=== PATIENT | female | born 1990 | race Asian ===

== ENCOUNTER 2018-06-02 17:07 | Emergency (ER) | END 2018-06-02 18:57 | disposition home or self-care (01) ==

== ENCOUNTER 2018-10-13 09:40 | Emergency (ER) | payer OTHER ==
[~2018-10-13] VITALS: Ht 162.6 cm; Wt 69.8 kg
[~2018-10-13 09:40] MED LIST: DOXY100T20 PO; MED4DP PO; NAPR-985 PO
[2018-10-13 09:44] VITALS: BP 138/68; PULSE 86; RESP 18; Ht 162.6 cm; Wt 69.8 kg
[2018-10-13] MEDS ORDERED: D-ME473S2 PO (12:31)
[2018-10-13] MEDS ORDERED: IBUP-1542 PO (12:31)
[2018-10-13] MEDS ORDERED: AZIT250T PO (12:31)
--- NOTE | 2018-10-13 12:35 | ERD ---
ER Documentation Chief Complaint Chief Complaint cold symptoms x 4 days HPI 28-year-old female presents with ear pain, congestion and cough for 4 days. She has mild pleuritic anterior chest pain. She denies sustained chest pain, vomiting, abdominal pain, urinary complaints. ROS All systems reviewed and are negative except as per history of present illness. Medications Home Meds Active Scripts Ibuprofen* (Motrin*) 600 Mg Tab, 600 MG PO Q6, #15 TAB Prov:FAUSTINO MOREIRA MD 10/13/18 Dextromethorphan Hb-Promethazine Hcl* (Promethazine DM* Syrup) 473 Ml Syrup, 5 ML PO Q6 PRN for COUGH for 5 Days, ML Prov:FAUSTINO MOREIRA MD 10/13/18 Azithromycin* (Zithromax*) 250 Mg Tablet, 250 MG PO .ZPACK DIRECTED, #6 TAB TAKE 500 MG (2 TABS) THE FIRST DAY THEN 250 MG (1 TAB) DAYS 2-5 Prov:FAUSTINO MOREIRA MD 10/13/18 Naproxen* (Naprosyn*) 500 Mg Tablet, 500 MG PO BID PRN for PAIN AND/OR INFLAMMATION, #30 TAB Prov:RADHA MEJIA PA-C 06/02/18 Methylprednisolone* (Medrol* DOSE PACK) 4 Mg/Dose-Pack Tab.ds.pk, 4 MG PO . DIRECTED, #1 PACKET Prov:RADHA MEJIA PA-C 06/02/18 Doxycycline Hyclate* (Doxycycline Hyclate*) 100 Mg Tablet.dr, 100 MG PO BID for 10 Days, TAB Prov:RADHA MEJIA PA-C 06/02/18 Allergies Allergies: Coded Allergies: No Known Allergy (Unverified , 06/02/18) PMhx/Soc Medical and Surgical Hx: pt denies Medical Hx, pt denies Surgical Hx History of Surgery: No Anesthesia Reaction: No Hx Neurological Disorder: No Hx Respiratory Disorders: No Hx Cardiac Disorders: No Hx Psychiatric Problems: No Hx Miscellaneous Medical Probl: No Hx Alcohol Use: Yes (social) Hx Substance Use: No Hx Tobacco Use: No Smoking Status: Never smoker FmHx Family History: No diabetes, No coronary disease, No other Physical Exam Vitals Vital Signs Date Temp Pulse Resp B/P (MAP) Pulse Ox O2 O2 Flow FiO2 Time Delivery Rate 10/13/18 98.5 86 18 138/68 99 09:44 (91) Physical Exam Const: No acute distress Head: Atraumatic Eyes: Normal Conjunctiva ENT: Normal External Ears, Nose and Mouth. TMs red and decreased light r eflex bilaterally. Postnasal drip. Neck: Full range of motion. No meningismus. Resp: Clear to auscultation bilaterally. No rales, wheezing or retractions appreciated. Cardio: Regular rate and rhythm, no murmurs Abd: Soft, non tender, non distended. Normal bowel sounds Skin: No petechiae or rashes Back: No midline or flank tenderness Ext: No cyanosis, or edema Neur: Awake and alert Psych: Normal Mood and Affect Procedures/MDM Patient presents with signs of otitis media without signs of perforation, mastoiditis, hypoxemia, rest or distress, additional complications. Will treat with Zithromax, promethazine, ibuprofen, primary care follow-up and return precautions. The patient was stable with no new complaints during the ER course. Clinically, there is no current evidence to suggest meningitis, sepsis, acute abdomen, pneumonia, stroke, acute coronary syndrome, pulmonary embolism, aortic dissection or any other emergent condition appearing to require further evaluation or hospitalization. Patient counseled regarding my diagnostic impression and care plan. Prior to discharge all questions answered. Pt agrees with treatment plan and understands strict return precautions. Pt is instructed to follow up with primary care provider within 24-48 hours. Precautionary instructions provided including instructions to return to the ER if not improving or for any worsening or changing symptoms or concerns. Departure Diagnosis: Primary Impression: Otitis media Otitis media type: suppurative Chronicity: unspecified Laterality: bilateral Qualified Codes: H66.43 - Suppurative otitis media, unspecified, bilateral Additional Impression: Upper respiratory infection URI type: unspecified URI Qualified Codes: J06.9 - Acute upper respiratory infection, unspecified Condition: Stable Patient Instructions: Otitis Media, Abx Tx (Adult) Additional Instructions: Recheck for new or worsening symptoms with primary care doctor. FAUSTINO MOREIRA MD Oct 13, 2018 12:35
== END 2018-10-13 12:59 | disposition home or self-care (01) ==
LOC: FTE 09:40
DX: H66.43 Suppurative otitis media, unspecified, bilateral (principal); J06.9 Acute upper respiratory infection, unspecified
CPT/HCPCS: 99283

== ENCOUNTER 2018-11-12 10:06 | Emergency (ER) | payer OTHER ==
[~2018-11-12] VITALS: Ht 157.5 cm; Wt 70.0 kg
[~2018-11-12 10:06] MED LIST changes: +AZIT250T PO; +D-ME473S2 PO; +IBUP-1542 PO
[2018-11-12 10:49] VITALS: BP 115/63; PULSE 89; RESP 20; Ht 157.5 cm; Wt 70.0 kg
[2018-11-12] MEDS ORDERED: BELLADONNA/PHENOBARBITAL TAB PO STA (13:20)
[2018-11-12] MEDS ORDERED: LIDOCAINE/MYLANTA 40 ML BTL PO STA (13:20)
[2018-11-12] MEDS ORDERED: ONDA4TAB14 PO (13:38)
[2018-11-12] MEDS ORDERED: HYDR-4011 PO (13:38)
[2018-11-12] MEDS ORDERED: FAMO-96 PO (13:38)
--- NOTE | 2018-11-12 14:40 | ERD ---
ER Documentation Chief Complaint Chief Complaint Complains of abdominal pain since last night HPI 28-year-old female presenting with abdominal pain and epigastric pain since last night. Has not taken medications for symptoms. Denies vomiting. Has some history of gastritis and is unsure of this her symptoms today. LNMP October 15. Denies medical problems. NKDA. Surgical history denies. Up-to-date on vaccinations. Social history denies ROS All systems reviewed and are negative except as per history of present illness. Medications Home Meds Active Scripts Famotidine* (Pepcid*) 20 Mg Tablet, 20 MG PO BID for 4 Days, #30 TAB Prov:DELPHINE SAUER PA-C 11/12/18 Ondansetron (Ondansetron Odt) 4 Mg Tab.rapdis, 4 MG PO Q6H PRN for NAUSEA AND/OR VOMITING, #10 TAB Prov:DELPHINE SAUER PA-C 11/12/18 Hydrocodone/Acetaminophen ([place] 5-325 Tablet) 1 Each Tablet, 1 TAB PO Q6H PRN for PAIN, #7 TAB Prov:DELPHINE SAUER PA-C 11/12/18 Ibuprofen* (Motrin*) 600 Mg Tab, 600 MG PO Q6, #15 TAB Prov:FAUSTINO MOREIRA MD 10/13/18 Dextromethorphan Hb-Promethazine Hcl* (Promethazine DM* Syrup) 473 Ml Syrup, 5 ML PO Q6 PRN for COUGH for 5 Days, ML Prov:FAUSTINO MOREIRA MD 10/13/18 Azithromycin* (Zithromax*) 250 Mg Tablet, 250 MG PO .RENNY DIRECTED, #6 TAB TAKE 500 MG (2 TABS) THE FIRST DAY THEN 250 MG (1 TAB) DAYS 2-5 Prov:FAUSTINO MOREIRA MD 10/13/18 Naproxen* (Naprosyn*) 500 Mg Tablet, 500 MG PO BID PRN for PAIN AND/OR INFL AMMATION, #30 TAB Prov:RADHA MEJIA PA-C 06/02/18 Methylprednisolone* (Medrol* DOSE PACK) 4 Mg/Dose-Pack Tab.ds.pk, 4 MG PO . DIRECTED, #1 PACKET Prov:RADHA MEJIA PA-C 06/02/18 Doxycycline Hyclate* (Doxycycline Hyclate*) 100 Mg Tablet.dr, 100 MG PO BID for 10 Days, TAB Prov:RADHA MEJIA PA-C 06/02/18 Allergies Allergies: Coded Allergies: No Known Allergy (Unverified , 06/02/18) PMhx/Soc History of Surgery: No Anesthesia Reaction: No Hx Neurological Disorder: No Hx Respiratory Disorders: No Hx Cardiac Disorders: No Hx Psychiatric Problems: No Hx Miscellaneous Medical Probl: Yes (gastritis) Hx Alcohol Use: Yes (social) Hx Substance Use: No Hx Tobacco Use: No Smoking Status: Never smoker FmHx Family History: No diabetes, No coronary disease, No other Physical Exam Vitals Vital Signs Date Temp Pulse Resp B/P (MAP) Pulse Ox O2 O2 Flow FiO2 Time Delivery Rate 11/12/18 98.3 89 20 115/63 20 10:49 (80) Physical Exam GENERAL: The patient is well-appearing, well-nourished, in no acute distress HEENT: Atraumatic. Conjunctivae are pink. Pupils equal, round, and reactive to light. There is no scleral icterus. Tympanic membranes clear bilaterally. Oropharynx clear. NECK: C-spine is soft and supple. There is no meningismus. There is no cervical lymphadenopathy. CHEST: Clear to auscultation bilaterally. There are no rales, wheezes or rhonchi. HEART: Regular rate and rhythm. No murmurs, clicks, rubs or gallops. No S3 or S4. ABDOMEN: Active bowel sounds. No distention. No organomegaly. Mild tenderness palpation in epigastric region. Result Diagram: 11/12/18 1246 11/12/18 1246 Results 24 hrs Laboratory Tests Test 11/12/18 12:45 11/12/18 12:46 11/12/18 12:52 Urine Color YELLOW Urine Clarity SLIGHTLY CLOUDY Urine pH 5.0 Urine Specific [place] 1.027 Urine Ketones NEGATIVE mg/dL Urine Nitrite NEGATIVE mg/dL Urine Bilirubin NEGATIVE mg/dL Urine Urobilinogen NEGATIVE mg/dL Urine Leukocyte Esterase TRACE Luca/ul Urine Microscopic RBC 6 /HPF Urine Microscopic WBC 4 /HPF Urine Squamous Epithelial Cells FEW /HPF Urine Mucus MODERATE /HPF Urine Hemoglobin 2+ mg/dL Urine Glucose NEGATIVE mg/dL Urine Total Protein NEGATIVE mg/dl White Blood Count 9.2 10^3/ul Red Blood Count 5.18 10^6/ul Hemoglobin 15.4 g/dl Hematocrit 46.5 % Mean Corpuscular Volume 89.8 fl Mean Corpuscular Hemoglobin 29.7 pg Mean Corpuscular 33.1 g/dl Hemoglobin Concent Red Cell Distribution Width 11.7 % Platelet Count 292 10^3/UL Mean Platelet Volume 9.0 fl Immature Granulocytes % 0.800 % Neutrophils % 80.2 % Lymphocytes % 10.4 % Monocytes % 7.5 % Eosinophils % 0.9 % Basophils % 0.2 % Nucleated Red Blood Cells % 0.0 /100WBC Immature Granulocytes # 0.070 10^3/ul Neutrophils # 7.3 10^3/ul Lymphocytes # 1.0 10^3/ul Monocytes # 0.7 10^3/ul Eosinophils # 0.1 10^3/ul Basophils # 0.0 10^3/ul Nucleated Red Blood Cells # 0.0 10^3/ul Sodium Level 141 mmol/L Potassium Level 4.2 mmol/L Chloride Level 102 mmol/L Carbon Dioxide Level 25 mmol/L Anion Gap 14 Blood Urea Nitrogen 15 mg/dl Creatinine 0.56 mg/dl Est Glomerular Filtrat > 60 mL/min Rate mL/min Glucose Level 101 mg/dl Calcium Level 9.2 mg/dl Total Bilirubin 0.7 mg/dl Direct Bilirubin 0.00 mg/dl Indirect Bilirubin 0.7 mg/dl Aspartate Amino 27 IU/L Transf (AST/SGOT) Alanine 28 IU/L Aminotransferase (ALT/SGPT) Alkaline Phosphatase 78 IU/L Total Protein 8.5 g/dl Albumin 4.7 g/dl Globulin 3.80 g/dl Albumin/Globulin Ratio 1.23 Lipase 31 U/L POC Beta HCG, Qualitative NEGATIVE Current Medications Medications Dose Sig/Juan J Start Time Status Last (Trade) Ordered Route PRN Stop Time Admin Dose Reason Admin 40 ml ONCE STAT 11/12/18 DC 11/12/18 Miscellaneous PO 13:20 13:27 Medication 11/12/18 13:21 (Gi Cocktail (2)) Belladonna/ 2 tab ONCE STAT 11/12/18 DC 11/12/18 Phenobarbital PO 13:20 13:27 () 11/12/18 13:21 Procedures/MDM DIAGNOSTIC IMAGING REPORT Patient: TIM ARROYO : 1990 Age: 28 Sex: F MR #: [id number] DOS: 11/12/18 1235 Ordering MD: SIOBHAN SAUER PA-C Location: [facility] Room/Bed: PROCEDURE: US Abdomen. CLINICAL INDICATION: abdominal pain TECHNIQUE: Multiple real-time images were acquired of the patient's right upper quadrant abdomen and retroperitoneum utilizing a high resolution transducer. COMPARISON: None FINDINGS: The liver demonstrates normal echogenicity. The liver is normal in size and no focal solid lesions are seen. The liver measures 14.2 cm in length. The portal vein is patent with normal direction of flow. No intrahepatic biliary dilatation is seen. No gallstones are identified within the gallbladder. There is no pericholecystic fluid or gallbladder wall thickening. The common bile duct measures 3 mm in maximal dimension. The visualized portions of the pancreas are unremarkable. The tail of the pancreas is not seen. No free fluid is identified. The right kidney is normal in size, and demonstrate normal echogenicity and cortical thickness. The right kidney measures 11.1 cm in long dimension. There is no evidence of hydronephrosis. There are no kidney stones. RPTAT: AA IMPRESSION: Unremarkable right upper quadrant abdominal ultrasound. MDM: 28-year-old female presenting with epigastric pain. Patient's exam is non- concerning. Patient is imaging blood work is within normal limits. Patient is discharged with supportive medications. Patient is told symptoms change or worsen to return immediately to the ER. All questions answered to Departure Diagnosis: Primary Impression: Epigastric pain Condition: Stable Patient Instructions: Epigastric Pain (Uncertain Cause) Referrals: [facility] YOU HAVE RECEIVED A MEDICAL SCREENING EXAM AND THE RESULTS INDICATE THAT YOU DO NOT HAVE A CONDITION THAT REQUIRES URGENT TREATMENT IN THE EMERGENCY DEPARTMENT. FURTHER EVALUATION AND TREATMENT OF YOUR CONDITION CAN WAIT UNTIL YOU ARE SEEN IN YOUR DOCTORS OFFICE WITHIN THE NEXT 1-2 DAYS. IT IS YOUR RESPONSIBILITY TO MAKE AN APPOINTMENT FOR FOLOW-UP CARE. IF YOU HAVE A PRIMARY DOCTOR --you should call your primary doctor and schedule an appointment IF YOU DO NOT HAVE A PRIMARY DOCTOR YOU CAN CALL OUR PHYSICIAN REFERRAL HOTLINE AT IF YOU CAN NOT AFFORD TO SEE A PHYSICIAN YOU CAN CHOSE FROM THE FOLLOWING [facility] [address] [facility] [address] [facility] [address] [facility] [address] [facility] [address] [facility]. [facility] [address] Additional Instructions: FOLLOW UP WITH YOUR PRIMARY CARE PHYSICIAN TOMORROW.Return to this facility if you are not improving as expected. DELPHINE SUAER PA-C Nov 12, 2018 14:40
== END 2018-11-12 13:47 | disposition home or self-care (01) ==
LOC: FTE 10:06
DX: R10.13 Epigastric pain (principal)
CPT/HCPCS: 36415; 76705; 80053; 81001; 81025; 83690; 85025; Z7502; Z7610

== ENCOUNTER 2018-12-21 15:37 | Emergency (ER) | payer OTHER ==
[~2018-12-21] VITALS: Ht 157.5 cm; Wt 70.9 kg
[~2018-12-21 15:37] MED LIST changes: +FAMO-96 PO; +HYDR-4011 PO; +ONDA4TAB14 PO
[2018-12-21 15:55] VITALS: Ht 157.5 cm; Wt 70.9 kg
[2018-12-21] MEDS ORDERED: KETOROLAC 30 MG INJ IM STA (17:21)
[2018-12-21] MEDS ORDERED: IBUP-1542 PO (17:29)
[2018-12-21] MEDS ORDERED: LORAZEPAM 1 MG TAB PO ONE (17:30)
--- NOTE | 2018-12-21 17:40 | ERD ---
ER Documentation Chief Complaint Chief Complaint migraine, chest wall pain x2 days HPI 28-year-old female past medical history of anxiety, no past surgical history who presents with 2-day complaint of chest wall pain as well as migraine. Patient states been having intermittent midsternal pressure-like chest discomfort which began abruptly 2 days ago. States when she presses against her sternum pain improves. She denies any history of GERD and denies GERD type symptoms. Has had which she describes a migraine type headache intermittently for the past couple days. No reported red flag symptoms for headache. She denies radiation of pain, associated shortness of breath or dyspnea, nausea, vomiting, abdominal pain, recent illness or URI type symptoms. She denies any history of known cardiac disease, no history of early cardiac . Has suffered from anxiety in the past but does not take medications for anxiety. Time examination patient is in no acute distress, normal triage vital signs, EKG without acute findings. ROS All systems reviewed and are negative except as per history of present illness. Medications Home Meds Active Scripts Ibuprofen* (Motrin*) 600 Mg Tab, 600 MG PO Q6H PRN for PAIN AND OR ELEVATED TEMP, #30 TAB Prov:BOSTON JAVIER PA-C 12/21/18 Famotidine* (Pepcid*) 20 Mg Tablet, 20 MG PO BID for 4 Days, #30 TAB Prov:DELPHINE SAUER PA-C 11/12/18 Ondansetron (Ondansetron Odt) 4 Mg Tab.rapdis, 4 MG PO Q6H PRN for NAUSEA AND/OR VOMITING, #10 TAB Prov:DELPHINE SAUER PA-C 11/12/18 Hydrocodone/Acetaminophen ([place] 5-325 Tablet) 1 Each Tablet, 1 TAB PO Q6H PRN for PAIN, #7 TAB Prov:DELPHINE SAUER PA-C 11/12/18 Ibuprofen* (Motrin*) 600 Mg Tab, 600 MG PO Q6, #15 TAB Prov:FAUSTINO MOREIRA MD 10/13/18 Dextromethorphan Hb-Promethazine Hcl* (Promethazine DM* Syrup) 473 Ml Syrup, 5 ML PO Q6 PRN for COUGH for 5 Days, ML Prov:FAUSTINO MOREIRA MD 10/13/18 Azithromycin* (Zithromax*) 250 Mg Tablet, 250 MG PO .RENNY DIRECTED, #6 TAB TAKE 500 MG (2 TABS) THE FIRST DAY THEN 250 MG (1 TAB) DAYS 2-5 Prov:FAUSTINO MOREIRA MD 10/13/18 Naproxen* (Naprosyn*) 500 Mg Tablet, 500 MG PO BID PRN for PAIN AND/OR INF LAMMATION, #30 TAB Prov:RADHA MEJIA PA-C 06/02/18 Methylprednisolone* (Medrol* DOSE PACK) 4 Mg/Dose-Pack Tab.ds.pk, 4 MG PO . DIRECTED, #1 PACKET Prov:RADHA MEJIA PA-C 06/02/18 Doxycycline Hyclate* (Doxycycline Hyclate*) 100 Mg Tablet.dr, 100 MG PO BID for 10 Days, TAB Prov:RADHA MEJIA PA-C 06/02/18 Allergies Allergies: Coded Allergies: No Known Allergy (Unverified , 06/02/18) PMhx/Soc History of Surgery: No Anesthesia Reaction: No Hx Neurological Disorder: No Hx Respiratory Disorders: No Hx Cardiac Disorders: No Hx Psychiatric Problems: No Hx Miscellaneous Medical Probl: Yes (gastritis) Hx Alcohol Use: Yes (social) Hx Substance Use: No Hx Tobacco Use: No FmHx Family History: No diabetes, No coronary disease, No other Physical Exam Vitals Vital Signs Date Temp Pulse Resp B/P (MAP) Pulse Ox O2 O2 Flow FiO2 Time Delivery Rate 12/21/18 99.9 73 18 96/64 (75) 97 15:55 Physical Exam Const: No acute distress Head: Atraumatic Eyes: Normal Conjunctiva ENT: Normal External Ears, Nose and Mouth. Neck: Full range of motion. No meningismus. Resp: Clear to auscultation bilaterally Cardio: Regular rate and rhythm, no murmurs Abd: Soft, non tender, non distended. Normal bowel sounds Skin: No petechiae or rashes Back: No midline or flank tenderness Ext: No cyanosis, or edema Neur: Awake and alert Psych: Normal Mood and Affect Results 24 hrs Laboratory Tests Test 12/21/18 17:47 POC Beta HCG, Qualitative NEGATIVE Current Medications Medications Dose Sig/Juan J Start Time Status Last (Trade) Ordered Route PRN Stop Time Admin Dose Reason Admin Ketorolac 30 mg ONCE STAT 12/21/18 DC 12/21/18 Tromethamine IM 17:21 17:58 (Toradol) 12/21/18 17:22 Lorazepam 1 mg ONCE ONCE 12/21/18 DC (Ativan) PO 17:30 12/21/18 17:31 Procedures/MDM 28-year-old female presents with complaint of chest wall pain as well as migraine headache. I have low suspicion for cardiopulmonary etiology of her symptoms. Symptoms may be related to costochondritis with or without anxiety c omponent. ED course: Toradol Patient otherwise healthy, p/w atypical chest wall pain ML of nonemergent etiology. No overt risk factors for ACS ECG without overt e/o STEMI, Brugadas sign, delta wave, epsilon wave, significantly prolonged QTc, or malignant arrhythmia. Low Wells score with low risk for PE and no significant hypoxia. Given chronicity and pain characteristics, low s/f dissection. Exam and history not consistent with significant PTX or PNA. Pain controlled, well appearing. Cautious return precautions discussed with full understanding. Prompt follow up with primary care physician discussed DISPOSITION PLAN: We discussed follow up with the patient's primary care doctor within 24 to 48 hours. Patient counseled regarding my diagnostic impression and care plan. Prior to discharge all questions answered. Pt agrees with treatment plan and understands strict return precautions. Precautionary instructions provided including instructions to return to the ER if not improving or for any worsening or changing symptoms or concerns. Disclaimer: Inadvertent spelling and grammatical errors are likely due to EHR/dictation software use and do not reflect on the overall quality of patient care. Also, please note that the electronic time recorded on this note does not necessarily reflect the actual time of the patient encounter. Departure Diagnosis: Primary Impression: Chest wall pain Condition: Stable Patient Instructions: Chest Wall Pain, Costochondritis Referrals: [facility] YOU HAVE RECEIVED A MEDICAL SCREENING EXAM AND THE RESULTS INDICATE THAT YOU DO NOT HAVE A CONDITION THAT REQUIRES URGENT TREATMENT IN THE EMERGENCY DEPARTMENT. FURTHER EVALUATION AND TREATMENT OF YOUR CONDITION CAN WAIT UNTIL YOU ARE SEEN IN YOUR DOCTORS OFFICE WITHIN THE NEXT 1-2 DAYS. IT IS YOUR RESPONSIBILITY TO MAKE AN APPOINTMENT FOR FOLOW-UP CARE. IF YOU HAVE A PRIMARY DOCTOR --you should call your primary doctor and schedule an appointment IF YOU DO NOT HAVE A PRIMARY DOCTOR YOU CAN CALL OUR PHYSICIAN REFERRAL HOTLINE AT IF YOU CAN NOT AFFORD TO SEE A PHYSICIAN YOU CAN CHOSE FROM THE FOLLOWING [facility] [address] [facility] [address] [facility] [facility] [address] [facility] [address] [facility] [address] [facility]. [facility]. [address] Additional Instructions: Call your primary care doctor TOMORROW for an appointment during the next 2-3 days.See the doctor sooner or return here if your condition worsens before your appointment time. BOSTON JAVIER PA-C Dec 21, 2018 17:39
[2018-12-21 18:47] VITALS: BP 109/70; PULSE 72; RESP 18
== END 2018-12-21 18:48 | disposition home or self-care (01) ==
LOC: FTE 15:37
DX: R07.89 Other chest pain (principal)
CPT/HCPCS: 81025; 96372; J1885; Z7502